=== PATIENT | female | born 1965 | race Native Hawaiian/Other Pacific Islander ===

== ENCOUNTER 2018-01-09 14:54 | Inpatient (IN) ==
--- NOTE | 2018-01-09 15:43 | ED ---
HPI General Chief Complaint: Psychiatric Symptoms Stated Complaint: Psych Eval Time Seen by Provider: 01/09/18 15:09 Source: patient Mode of arrival: other (TEJAL) Limitations: no limitations History of Present Illness HPI Narrative: 53-year-old female with a history of depression presents to emergency department for evaluation as a Pearson act. Patient was reported to call the police as patient has been feeling depressed and wanting to harm herself. Patient states she has been taking Paxil as prescribed however, still feels depressed and is worsening. Says she has had decreased sleep because of racing thoughts. She says that her temperature has been increasing and she is walking in the house all night because she is unable to sleep. She also has a history of hypertension but has been taking her medication. She denies fever, chills, chest pain or shortness of breath. She has no other complaints other than feeling depressed. Denies illicit drug use or alcohol use. complaint: suicidal ideation and feels depressed Onset (ago): day(s) Duration: constant and getting worse History of same: Yes Relieving factors: none Exacerbating factors: none Associated psychiatric symptoms: depression, suicidal ideation and racing thoughts Associated symptoms: denies other symptoms Treatments prior to arrival: none If self harm: admits thoughts of self harm Related Data Home Medications Medication Instructions Recorded Confirmed paroxetine HCl [Paxil] 40 mg PO DAILY 11/01/17 01/09/18 lisinopril 10 mg PO DAILY 01/09/18 01/09/18 Allergies Allergy/AdvReac Type Severity Reaction Status Date / Time acetaminophen Allergy Severe Swelling Verified 12/14/16 10:31 hydrocodone Allergy Severe Verified 12/14/16 10:31 ibuprofen Allergy Severe Swelling Verified 12/14/16 10:31 naproxen Allergy Severe Swelling Verified 12/14/16 10:31 oxycodone Allergy Severe Swelling Verified 12/14/16 10:31 aspirin Allergy Mild ITCH/SWELLI Verified 12/14/16 10:31 NG Review of Systems ROS: all other systems reviewed are negative PMFSH Medical History Medical History Depression (Acute) Surgical History Surgical History Hx of appendectomy (Acute) Social History Social History Substance History: No History of Abuse Second Hand Smoke Exposure: No Smoking Status: Never smoker How Often Do You Have a Drink Containing Alcohol: Monthly or less Recent Travel in [place] within the Last 8 Weeks: No Recent Out of Country Travel within the Last 8 Weeks: No Immunization History Tetanus Immunization: Unsure Hx Influenza Vaccine This Season: No Exam Narrative Exam Narrative: GENERAL: Well-developed, well-nourished appears sad, disheveled SKIN: Focused skin assessment warm/dry. HEAD: Atraumatic. Normocephalic. EYES: Pupils equal and round. No scleral icterus. No injection or drainage. ENT: No nasal bleeding or discharge. Mucous membranes pink and moist. NECK: Trachea midline. No JVD. MUSCULOSKELETAL: No obvious deformities. No clubbing. No cyanosis. No edema. NEUROLOGICAL: Awake and alert. No obvious cranial nerve deficits. Motor grossly within normal limits. Normal speech. PSYCHIATRIC: Depressed mood and affect; insight and judgment normal. Course Initial Documented Vital Signs Temperature 99.2 F 01/09/18 15:02 Pulse Rate 72 01/09/18 15:02 Respiratory Rate 16 01/09/18 15:02 Blood Pressure 154/80 H 01/09/18 15:02 Pulse Oximetry 99 01/09/18 15:02 Last Documented Vital Signs Temperature 98.4 F 01/10/18 06:00 Pulse Rate 66 01/10/18 06:00 Respiratory Rate 18 01/10/18 06:00 Blood Pressure 100/57 L 01/10/18 06:00 Pulse Oximetry 93 L 01/10/18 06:00 Medical Decision Making MDM Narrative Medical decision making narrative: 53y female presents to the ED as a Pearson Act with depression and suicidal ideations. Vitals are stable. Labs stable. She is medically cleared to see psych. Medical Screen Exam Complete: Yes Emergency Medical Condition: Yes Differential Diagnosis Differential Diagnosis: Suicidal ideations, depression, mood disorder, adjustment disorder Lab Data Result diagrams: 01/09/18 15:30 01/10/18 06:04 Lab Results 01/09/18 01/09/18 01/09/18 Range/Units 15:30 15:30 16:00 WBC 8.4 (4.0-11.0) th/mm3 RBC 4.10 (4.00-5.30) mil/mm3 Hgb 12.7 (11.6-15.3) gm/dL Hct 37.9 (35.0-46.0) % MCV 92.4 (80.0-100.0) fL MCH 31.0 (27.0-34.0) pg MCHC 33.6 (32.0-36.0) % RDW 14.1 (11.6-17.2) % Plt Count 297 (150-450) th/mm3 MPV 8.4 (7.0-11.0) fL Neut % (Auto) 58.1 (16.0-70.0) % Lymph % (Auto) 34.1 (9.0-44.0) % [place] % (Auto) 6.0 (0.0-8.0) % Eos % (Auto) 1.4 (0.0-4.0) % Baso % (Auto) 0.4 (0.0-2.0) % Neut # (Auto) 4.9 (1.8-7.7) th/mm3 Lymph # (Auto) 2.9 (1.0-4.8) th/mm3 [place] # (Auto) 0.5 (0.0-0.9) th/mm3 Eos # (Auto) 0.1 (0.0-0.4) th/mm3 Baso # (Auto) 0.0 (0.0-0.2) th/mm3 WBC Differential . Differential Comment Auto diff final Hemoglobin A Hemoglobin A2 Hemoglobin F () Hgb A2/F Interpret Hemoglobin Variant 2 Hemoglobin Variant 3 Hemoglobin Variant % Sodium 140 (136-145) meq/L Potassium 3.7 (3.5-5.1) meq/L Chloride 106 (98-107) meq/L Carbon Dioxide 27.3 (21.0-32.0) meq/L Anion Gap 7 (5-15) meq/L BUN 14 (7-18) mg/dL Creatinine 0.91 (0.50-1.00) mg/dL Estimated GFR 64 L (>89) mL/min Random Glucose 175 H (74-106) mg/dL Hemoglobin A1c (4.3-6.0) % Calcium 8.4 L (8.5-10.1) mg/dL Total Bilirubin 0.3 (0.2-1.0) mg/dL AST 28 (15-37) U/L ALT 47 (10-53) U/L Alkaline Phosphatase 80 (45-117) U/L Total Protein 7.9 (6.4-8.2) g/dL Albumin 3.6 (3.4-5.0) g/dL Triglycerides (42-150) mg/dL Cholesterol (120-200) mg/dL LDL Cholesterol, Calc (0-99) mg/dL HDL Cholesterol (40.0-60.0) mg/dL Cholesterol/HDL Ratio Ratio TSH 3.010 (0.358-3.740) uIU/mL Urine Opiates Screen Neg (Neg) Ur Barbiturates Screen Neg (Neg) Ur Amphetamines Screen Neg (Neg) U Benzodiazepines Scrn Neg (Neg) Urine Cocaine Screen Neg (Neg) U Cannabinoids Screen Neg (Neg) Serum Alcohol Less than 3 (0-5) mg/dL 01/10/18 01/10/18 01/10/18 Range/Units 06:01 06:01 06:04 WBC (4.0-11.0) th/mm3 RBC (4.00-5.30) mil/mm3 Hgb (11.6-15.3) gm/dL Hct (35.0-46.0) % MCV (80.0-100.0) fL MCH (27.0-34.0) pg MCHC (32.0-36.0) % RDW (11.6-17.2) % Plt Count (150-450) th/mm3 MPV (7.0-11.0) fL Neut % (Auto) (16.0-70.0) % Lymph % (Auto) (9.0-44.0) % [place] % (Auto) (0.0-8.0) % Eos % (Auto) (0.0-4.0) % Baso % (Auto) (0.0-2.0) % Neut # (Auto) (1.8-7.7) th/mm3 Lymph # (Auto) (1.0-4.8) th/mm3 [place] # (Auto) (0.0-0.9) th/mm3 Eos # (Auto) (0.0-0.4) th/mm3 Baso # (Auto) (0.0-0.2) th/mm3 WBC Differential Differential Comment Hemoglobin A Cancelled Hemoglobin A2 Cancelled Hemoglobin F () Cancelled Hgb A2/F Interpret Cancelled Hemoglobin Variant 2 Cancelled Hemoglobin Variant 3 Cancelled Hemoglobin Variant % Cancelled Sodium 142 (136-145) meq/L Potassium 3.5 (3.5-5.1) meq/L Chloride 107 (98-107) meq/L Carbon Dioxide 25.9 (21.0-32.0) meq/L Anion Gap 9 (5-15) meq/L BUN 13 (7-18) mg/dL Creatinine 0.85 (0.50-1.00) mg/dL Estimated GFR 69 L (>89) mL/min Random Glucose 91 (74-106) mg/dL Hemoglobin A1c 6.3 H (4.3-6.0) % Calcium 8.5 (8.5-10.1) mg/dL Total Bilirubin (0.2-1.0) mg/dL AST (15-37) U/L ALT (10-53) U/L Alkaline Phosphatase (45-117) U/L Total Protein (6.4-8.2) g/dL Albumin (3.4-5.0) g/dL Triglycerides 251 H (42-150) mg/dL Cholesterol 195 (120-200) mg/dL LDL Cholesterol, Calc 109 H (0-99) mg/dL HDL Cholesterol 35.5 L (40.0-60.0) mg/dL Cholesterol/HDL Ratio 5.49 Ratio TSH (0.358-3.740) uIU/mL Urine Opiates Screen (Neg) Ur Barbiturates Screen (Neg) Ur Amphetamines Screen (Neg) U Benzodiazepines Scrn (Neg) Urine Cocaine Screen (Neg) U Cannabinoids Screen (Neg) Serum Alcohol (0-5) mg/dL Discharge Plan Discharge Disposition Patient Disposition: 30 Still Patient Discharge Condition Condition: Stable Discharge Details Diagnosis: Suicidal ideations, Depressed mood Physicians Team ED Provider: Sly Navarro ED Midlevel Provider: Sharonda Guerrero Primary Care Provider: Primary Care Corina Villarreal Attending Provider: Elio Bertrand Other Providers: SG Garay High Service Status ED Status: Left Department Discharge Information Discharge Date/Time: 01/10/18 00:17
[2018-01-09 16:31] LABS: Baso % (Auto) 0.4 % (0.0-2.0); Eos # (Auto) 0.1 th/mm3 (0.0-0.4); Eos % (Auto) 1.4 % (0.0-4.0); Hematocrit 37.9 % (35.0-46.0); Hemoglobin 12.7 gm/dL (11.6-15.3); Lymph # (Auto) 2.9 th/mm3 (1.0-4.8); Lymph % (Auto) 34.1 % (9.0-44.0); Mean Corpuscular HGB Conc 33.6 % (32.0-36.0); Mean Corpuscular Volume 92.4 fL (80.0-100.0); Mean Platelet Volume 8.4 fL (7.0-11.0); Mono # (Auto) 0.5 th/mm3 (0.0-0.9); Neut # (Auto) 4.9 th/mm3 (1.8-7.7); Neut % (Auto) 58.1 % (16.0-70.0); Platelet Count 297 th/mm3 (150-450); Red Cell Distribution Width 14.1 % (11.6-17.2); White Blood Count 8.4 th/mm3 (4.0-11.0)
[2018-01-09 16:40] LABS: Amphetamine Screen,Urine Neg (Neg); Barbiturate Screen,Urine Neg (Neg); Cannabinoid Screen,Urine Neg (Neg); Cocaine Screen,Urine Neg (Neg)
[2018-01-09 16:51] LABS: Alanine Aminotransferase 47 U/L (10-53); Albumin 3.6 g/dL (3.4-5.0); Anion Gap 7 meq/L (5-15); Aspartate Aminotransferase 28 U/L (15-37); Blood Urea Nitrogen 14 mg/dL (7-18); Calcium 8.4 mg/dL (8.5-10.1); Carbon Dioxide 27.3 meq/L (21.0-32.0); Chloride 106 meq/L (98-107); Glomerular Filtration Rate 64 mL/min (>89); Glucose,Random 175 mg/dL (74-106); Potassium 3.7 meq/L (3.5-5.1); Sodium 140 meq/L (136-145)
[2018-01-09 16:58] LABS: Opiate Screen,Urine Neg (Neg)
[2018-01-09 17:01] LABS: Alkaline Phosphatase 80 U/L (45-117); Total Protein 7.9 g/dL (6.4-8.2)
[2018-01-09] MEDS ORDERED: Aluminum/Magnesium/Simethacone Susp 30 ML UDC PO PRN (21:34)
[2018-01-10 07:46] LABS: Calcium 8.5 mg/dL (8.5-10.1); Carbon Dioxide 25.9 meq/L (21.0-32.0); Potassium 3.5 meq/L (3.5-5.1)
[2018-01-10 07:50] LABS: Chol/HDL Ratio 5.49 Ratio; HDL Cholesterol 35.5 mg/dL (40.0-60.0)
[2018-01-10 12:14] LABS: Hemoglobin A1c 6.3 % (4.3-6.0)
--- NOTE | 2018-01-10 12:53 | P.HPPSY ---
Provisional Diagnosis Admission Date: January 09, 2018 20:55 [place] I.: 1. Major depressive disorder, recurrent, severe with psychotic features [place] II.: Deferred Competence Certification of Person's Competence To Provide Express and Informed Consent I have personally examined Lolis Aguilar, a person being served at [facility] on, January 10, 2018 1253. Express and informed consent means consent voluntarily given in writing, by a competent person, after sufficient explanation and disclosure of the subject matter involved to enable the person to make a knowing and willful decision without any element of force, fraud, deceit, duress, or other form of constraint or coercion. This person is 18 years of age or older, is not now known to be incompetent to consent to treatment with a guardian advocate, and does not have a health care surrogate or proxy currently making medical treatment decisions. I have found this person to be one of the following: [X] Competent to provide express and informed consent, as defined above, for voluntary admission to this facility and is competent to provide express and informed consent for treatment. He/she has the consistent capacity to make well reasoned, willful, and knowing decisions concerning his or her medical or mental health treatment. The person fully and consistently understands the purpose of the admission for examination/placement and is fully capable of personally exercising all rights assured [place] [] Incompetent to provide express and informed consent to voluntary admission, and this is incompetent to provide express and informed consent to treatment. The person must be transferred to involuntary status and a petition for a guardian advocate filed with the Circuit Court. [] Refusing to provide express and informed consent to voluntary admission but is competent to provide express and informed consent for treatment. The person must be discharged or transferred to involuntary status. Form shall be completed within 24 hours of a person's arrival at the receiving facility and filed in the clinical record of each person: 1. Admitted on a voluntary basis 2. Permitted to provide express and informed consent to his/her own treatment 3. Allowed to transfer from involuntary to voluntary status 4. Prior to permitting a person to consent to his or her own treatment after having been previously found incompetent to consent to treatment. History of Present Illness Capacity: Has capacity Chief Complaint: Depression History of Present Illness: Ms. Aguilar is a 53-year-old female with a reported history of depression who was brought to the emergency department under a Pearson act by law enforcement. She told the ED provider that she was taking Paxil but that was not helping with her depression. Reviewing the electronic medical record, I see no previous psychiatric contact within our system. Patient seen and examined with nurse. Chart reviewed. Case discussed with nursing staff. On my examination today, the patient says that she has been feeling depressed "always" but that more recently she has begun experiencing deprecatory auditory hallucinations occurring most of the time and occasional command auditory hallucinations to self injure. She also has been experiencing visual hallucinations of figures beside her. She reports that her sleep has been quite poor. She says that she was experiencing suicidal ideation yesterday but denies any suicidal ideation today. No homicidal ideation. No hypomanic or manic symptoms. Remainder of the psychiatric ROS is negative. No acute physical complaints. Past psychiatric history: The patient reports a history of depression. She is not under the care of a psychiatrist. She takes Paxil prescribed to her by her primary care doctor, but as noted in the ED provider notes she does not believe that this medication alone is adequate for her psychiatric issues and in particular her sleep. She notes that she was psychiatrically admitted 2 years ago in [facility]. She denies a history of suicide attempts. Family history: The patient denies a family history of mental illness. Chemical dependency history: The patient denies any abuse of drugs or alcohol. Social history: Patient lives with her and son. She is high school educated. She does not work. She denies any or legal history. Denies any access to guns or firearms. She is a Druze. She denies any history of trauma. Past medical history: Includes a history of hypertension. - Inpatient Certification I certify that the inpatient services were ordered in accordance with Medicare regulations governing the order. This includes certification that hospital inpatient services are reasonable and necessary and in the case of services not specified as inpatient-only under 42 CFR 419.22(n), that they are appropriately provided as inpatient services in accordance to with the 2-midnight benchmark under 43 CFR 412.3(e) I certify that inpatient psychiatric hospital services are medically necessary. Evaluation and treatment and/or diagnostic testing are expected to improve the patient's condition. The patient needs on a daily basis, active treatment furnished directly by or requiring the supervision of inpatient psychiatric facility personnel. Estimated Total Length of Stay (Days): 9 (7-9) Plans for Post Hospital Care: Not yet determined Review of Systems All other systems reviewed negative except as stated in HPI [facility] - History History Provided By: Patient - Medical History Medical History: Medical History (Last Reviewed 01/09/18 @ 15:42 by MICHELLE Newberry) Depression (Acute) - Surgical History Surgical History: Surgical History (Last Updated 01/09/18 @ 15:11 by Eliana Lehman RN) Hx of appendectomy (Acute) - Tobacco History Second Hand Smoke Exposure: No Smoking Status: Never smoker - Alcohol History How Often Do You Have a Drink Containing Alcohol: Monthly or less - Substance Use History Substance History: No History of Abuse - Travel History Recent Travel in the [place] Within the Last 8 Weeks: No Recent Travel Out of the Country Within the Last 8 Weeks: No - Immunization History Tetanus Immunization: Unsure Hx Influenza Vaccine This Season: No Quality Measures - Patient Strengths Patient's strengths (minimum of 2): In a monitored setting. Verbally fluent. Medications and Allergies Active Medications: Active Medications Al Hydrox/Mg Hydrox/Simethicone (Mag-Al Plus Susp Liq) 30 ml PO Q6H PRN PRN Reason: DYSPEPSIA Al Hydroxide/Mg Hydroxide (Milk Of Magnesia Liq) 30 ml PO DAILY PRN PRN Reason: CONSTIPATION Diphenhydramine HCl (Benadryl) 50 mg PO HS PRN PRN Reason: INSOMNIA Last Admin: 01/09/18 21:37 Dose: 50 mg Diphenhydramine HCl (Benadryl Inj) 50 mg IM HS PRN PRN Reason: INSOMNIA Hydroxyzine HCl (Atarax) 50 mg PO Q6H PRN PRN Reason: ANXIETY Nicotine (Habitrol 21 Mg Patch.24 Hr) 1 patch T-DERMAL DAILY [facility] Last Admin: 01/10/18 08:26 Dose: Not Given Patch Removal (Remove Old Patch) 1 each T-DERMAL HS [facility] Risperidone (Risperdal) 1 mg PO BID STEVAN Last Admin: 01/10/18 08:27 Dose: 1 mg Allergies Allergy/AdvReac Type Severity Reaction Status Date / Time acetaminophen Allergy Severe Swelling Verified 12/14/16 10:31 hydrocodone Allergy Severe Verified 12/14/16 10:31 ibuprofen Allergy Severe Swelling Verified 12/14/16 10:31 naproxen Allergy Severe Swelling Verified 12/14/16 10:31 oxycodone Allergy Severe Swelling Verified 12/14/16 10:31 aspirin Allergy Mild ITCH/SWELLI Verified 12/14/16 10:31 NG Home Medications Medication Instructions Recorded Confirmed Type paroxetine HCl [Paxil] 40 mg PO DAILY 11/01/17 01/09/18 History lisinopril 10 mg PO DAILY 01/09/18 01/09/18 History Results - Labs CBC & Chem 7: 01/09/18 15:30 01/10/18 06:04 Labs: Laboratory Results - last 24 hr 01/09/18 01/09/18 01/09/18 15:30 15:30 16:00 WBC 8.4 RBC 4.10 Hgb 12.7 Hct 37.9 MCV 92.4 MCH 31.0 MCHC 33.6 RDW 14.1 Plt Count 297 MPV 8.4 Neut % (Auto) 58.1 Lymph % (Auto) 34.1 [place] % (Auto) 6.0 Eos % (Auto) 1.4 Baso % (Auto) 0.4 Neut # (Auto) 4.9 Lymph # (Auto) 2.9 [place] # (Auto) 0.5 Eos # (Auto) 0.1 Baso # (Auto) 0.0 WBC Differential . Differential Comment Auto diff final Hemoglobin A Hemoglobin A2 Hemoglobin F () Hgb A2/F Interpret Hemoglobin Variant 2 Hemoglobin Variant 3 Hemoglobin Variant % Sodium 140 Potassium 3.7 Chloride 106 Carbon Dioxide 27.3 Anion Gap 7 BUN 14 Creatinine 0.91 Estimated GFR 64 L Random Glucose 175 H Hemoglobin A1c Calcium 8.4 L Total Bilirubin 0.3 AST 28 ALT 47 Alkaline Phosphatase 80 Total Protein 7.9 Albumin 3.6 Triglycerides Cholesterol LDL Cholesterol, Calc HDL Cholesterol Cholesterol/HDL Ratio TSH 3.010 Urine Opiates Screen Neg Ur Barbiturates Screen Neg Ur Amphetamines Screen Neg U Benzodiazepines Scrn Neg Urine Cocaine Screen Neg U Cannabinoids Screen Neg Serum Alcohol Less than 3 01/10/18 01/10/18 01/10/18 06:01 06:01 06:04 WBC RBC Hgb Hct MCV MCH MCHC RDW Plt Count MPV Neut % (Auto) Lymph % (Auto) [place] % (Auto) Eos % (Auto) Baso % (Auto) Neut # (Auto) Lymph # (Auto) [place] # (Auto) Eos # (Auto) Baso # (Auto) WBC Differential Differential Comment Hemoglobin A Cancelled Hemoglobin A2 Cancelled Hemoglobin F () Cancelled Hgb A2/F Interpret Cancelled Hemoglobin Variant 2 Cancelled Hemoglobin Variant 3 Cancelled Hemoglobin Variant % Cancelled Sodium 142 Potassium 3.5 Chloride 107 Carbon Dioxide 25.9 Anion Gap 9 BUN 13 Creatinine 0.85 Estimated GFR 69 L Random Glucose 91 Hemoglobin A1c 6.3 H Calcium 8.5 Total Bilirubin AST ALT Alkaline Phosphatase Total Protein Albumin Triglycerides 251 H Cholesterol 195 LDL Cholesterol, Calc 109 H HDL Cholesterol 35.5 L Cholesterol/HDL Ratio 5.49 TSH Urine Opiates Screen Ur Barbiturates Screen Ur Amphetamines Screen U Benzodiazepines Scrn Urine Cocaine Screen U Cannabinoids Screen Serum Alcohol Labs reviewed. Mildly elevated hemoglobin A1c. I will switch to carbohydrate controlled diet. Exam Vital signs: Vital Signs 01/09/18 15:02 01/09/18 22:00 01/10/18 06:00 Temperature 99.2 F 98.2 F 98.4 F Pulse Rate 72 65 66 Respiratory Rate 16 18 Blood Pressure 154/80 H 173/84 H 100/57 L Pulse Oximetry 99 96 93 L Intake & Output 01/09/18 01/10/18 01/10/18 18:59 06:59 18:59 Intake Total 360 / 360 Balance 360 / 360 Weight 165 kg 74.3 kg Intake: Oral 360 / 360 Narrative: Physical examination completed by the ED provider. On my examination today, the patient appears to be in no acute physical distress. No motor abnormalities noted. No signs of catatonia noted. Labs and vital signs reviewed. Mental Status Examination Appearance: Appropriate Consciousness: Alert Orientation: Person, Place (At least) Motor Activity: Other (No motor abnormalities noted) Speech: Slow Language: Adequate Fund of Knowledge: Adequate Attention and Concentration: Adequate Memory: Unremarkable (Grossly intact on clinical exam) Mood: Other (Depressed) Affect: Other (Restricted) Thought Process & Associations: Other (Somewhat slowed) Thought Content: Hallucinations Hallucination Type: Auditory, Visual, Command Delusion Type: None Suicidal Ideation: No Suicidal Plan: No Suicidal Intention: No Homicidal Ideation: No Homicidal Plan: No Homicidal Intention: No Insight: Fair Judgment: Impulsive Assessment and Plan - Assessment (1) Major depressive disorder, recurrent, severe with psychotic features Code(s): F33.3 - Major depressive disorder, recurrent, severe with psychotic symptoms Status: Acute - Plan Plan: 53-year-old female with psychiatric history as detailed above who presents under a Pearson act. On my examination today, the patient endorses depressive symptomatology as well as more recent onset of hallucinations. I am concerned that she may be experiencing a psychotic depression. No laboratory abnormalities to indicate obvious medical cause for new onset of hallucinations. Patient requires psychiatric hospitalization for safety, observation and stabilization. Admit inpatient. Voluntary status. Continue Paxil 40 mg daily for management of depression. To consider augmenting with a second antidepressant versus switching to a different primary antidepressant. For management of psychosis I will add Seroquel 50 mg at bedtime with plans to titrate to effect. Atarax as needed for anxiety. Melatonin as needed for sleep. R/B/A for medications discussed with patient. Check EKG for QTC. Vitals every shift. Counselor to see. Disposition planning. Estimated length of stay: 7-9 days. Justification for Continued Inpatient Stay: See above Discharge Planning: Pending psychiatric stabilization Request Healthcare Surrogate/Guardian Advocate?: No
[2018-01-10] MEDS: QUEtiapine 25 MG Tablet PO SCH (20:51)
[2018-01-10] MEDS ORDERED: Melatonin 5 MG Tablet PO PRN (21:00)
[2018-01-11 06:51] LABS: Calcium 8.7 mg/dL (8.5-10.1); Carbon Dioxide 27.9 meq/L (21.0-32.0); Potassium 3.8 meq/L (3.5-5.1)
[2018-01-11 06:54] LABS: Chol/HDL Ratio 5.29 Ratio; HDL Cholesterol 37.4 mg/dL (40.0-60.0)
[2018-01-11] MEDS: Lisinopril 10 MG Tablet PO SCH (08:50)
--- NOTE | 2018-01-11 13:54 | P.PNPSY ---
Subjective Chief Complaint: Depression Remarks: Patient seen and examined with nurse. Chart reviewed. Patient did not receive Seroquel last night secondary to being fairly sedated. Case discussed with nursing staff who reports that the patient has been much more alert today and presented no behavioral problem. Case discussed with counselor who will call family members for collateral. On my examination today, the patient is awake and alert. She is calm and cooperative with examination. She says that she is feeling better today. She continues to endorse deprecatory auditory hallucinations but denies command auditory hallucinations to hurt herself or others. She also endorses occasional visual phenomena. She says that she has been quite stressed out lately because of being out of work. I did discuss with the patient the possibility of starting a different antipsychotic that is less sedating, but the patient would like to give the Seroquel a try tonight. No side effects from medications. No physical complaints. Vital Signs Temp Pulse Resp BP Pulse Ox 01/11/18 07:16 97.6 F 63 16 115/67 94 L 01/11/18 05:50 97.6 F 63 16 115/67 94 L 01/10/18 20:00 97.8 F 97 H 16 132/62 97 Intake and Output 01/11/18 01/11/18 01/11/18 06:59 14:59 22:59 Other: Weight 74.8 kg Laboratory Results - last 24 hr 01/11/18 05:51 Sodium 142 Potassium 3.8 Chloride 107 Carbon Dioxide 27.9 Anion Gap 7 BUN 19 H Creatinine 0.85 Estimated GFR 69 L Random Glucose 93 Calcium 8.7 Triglycerides 180 H Cholesterol 198 LDL Cholesterol, Calc 125 H HDL Cholesterol 37.4 L Cholesterol/HDL Ratio 5.29 Labs reviewed. EKG reviewed. QTc within normal limits. Review of Systems All other systems reviewed negative except as stated in HPI Mental Status Examination Appearance: Appropriate Consciousness: Alert Orientation: Person, Place (At least) Motor Activity: Other (No motoric abnormalities noted) Speech: Unremarkable Language: Adequate Fund of Knowledge: Adequate Attention and Concentration: Adequate Memory: Unremarkable (Grossly intact on clinical exam) Mood: Other (Depressed) Affect: Other (Brighter and more reactive today) Thought Process & Associations: Intact Thought Content: Hallucinations Hallucination Type: Auditory (Noncommand, deprecatory), Visual Delusion Type: None Suicidal Ideation: No Homicidal Ideation: No Insight: Fair Judgment: Impulsive Assessment and Plan - Assessment (1) Major depressive disorder, recurrent, severe with psychotic features Code(s): F33.3 - Major depressive disorder, recurrent, severe with psychotic symptoms Status: Acute - Plan Plan: First dose of Seroquel this evening. Continue Paxil as ordered. Continue to monitor on the inpatient unit. Continue other medications and care as ordered. Justification for Continued Inpatient Stay: Risk for decompensation in less restrictive environment. Impairment in reality construction. Discharge Planning: Pending psychiatric stabilization. Request Healthcare Surrogate/Guardian Advocate?: No
--- NOTE | 2018-01-11 19:58 | ECG ---
Date Performed: 01/10/2018 Time Performed: 13:29:13 PTAGE: 53 years EKG: Sinus rhythm INCOMPLETE RIGHT BUNDLE BRANCH BLOCK LEFT ANTERIOR FASCICULAR BLOCK NONSPECIFIC T-WAVE ABNORMALITY S [place] the previous tracing, no significant change noted ABNORMAL ECG PREVIOUS TRACING : 01/06/2015 15.26 DOCTOR: Cl Higginbotham Interpretating Date/Time 01/11/2018 19:58:06
[2018-01-11] MEDS: QUEtiapine 25 MG Tablet PO SCH (20:30)
[2018-01-12 04:55] VITALS: BP 119/66; PULSE 68; RESP 16; TEMP 97.9; O2SAT 94
[2018-01-12] MEDS: Lisinopril 10 MG Tablet PO SCH (09:05)
--- NOTE | 2018-01-12 12:40 | P.DSPSY ---
Psychiatry Discharge Summary Inpatient Psychiatric care?: Yes Advance Directives: No Mental Health Advance Directive: No Health Care Proxy: No - Admission Admission Date: January 09, 2018 20:55 - Admission Diagnosis (1) Major depressive disorder, recurrent, severe with psychotic features Code(s): F33.3 - Major depressive disorder, recurrent, severe with psychotic symptoms Brief History: Ms. Aguilar is a 53-year-old female with a reported history of depression who was brought to the emergency department under a Pearson act by law enforcement. She told the ED provider that she was taking Paxil but that was not helping with her depression. Reviewing the electronic medical record, I see no previous psychiatric contact within our system. Patient seen and examined with nurse. Chart reviewed. Case discussed with nursing staff. On my examination today, the patient says that she has been feeling depressed "always" but that more recently she has begun experiencing deprecatory auditory hallucinations occurring most of the time and occasional command auditory hallucinations to self injure. She also has been experiencing visual hallucinations of figures beside her. She reports that her sleep has been quite poor. She says that she was experiencing suicidal ideation yesterday but denies any suicidal ideation today. No homicidal ideation. No hypomanic or manic symptoms. Remainder of the psychiatric ROS is negative. No acute physical complaints. Past psychiatric history: The patient reports a history of depression. She is not under the care of a psychiatrist. She takes Paxil prescribed to her by her primary care doctor, but as noted in the ED provider notes she does not believe that this medication alone is adequate for her psychiatric issues and in particular her sleep. She notes that she was psychiatrically admitted 2 years ago in [facility]. She denies a history of suicide attempts. Family history: The patient denies a family history of mental illness. Chemical dependency history: The patient denies any abuse of drugs or alcohol. Social history: Patient lives with her and son. She is high school educated. She does not work. She denies any or legal history. Denies any access to guns or firearms. She is a Sabianism. She denies any history of trauma. Past medical history: Includes a history of hypertension. Tobacco Use In Past 30 Days: No How Often Do You Have a Drink Containing Alcohol: Monthly or less Hospital Course: Patient was admitted to a locked, inpatient psychiatric unit. Appropriate precautions were in place throughout patient's hospital stay. Patient was seen and examined on the unit by psychiatry and also visited by counselor. Psychotropic medications were adjusted. There was no evidence of any suicidality or homicidality on the inpatient unit. Collateral information was obtained from the patient's . On the day of discharge: Patient seen and examined with nurse. Chart reviewed. Case discussed with nursing staff. No behavioral issues noted overnight. Case discussed in treatment team. Counselor relates that she has reached out to the patient's who is supportive of discharge home today. Occupational therapist notes that the patient still seems somewhat depressed. On my examination today, the patient is requesting discharge from the inpatient psychiatric unit today. She denies any suicidal or homicidal ideation, intent or plan. She reports that her mood is "healthy good" and I can elicit no severe depressive or hypomanic/manic symptoms. She insists that she has not had any audiovisual hallucinations in 2 days and has none now. I can elicit no delusional material. She denies any side effects from medications. She was able to tolerate her Seroquel last night. No physical complaints. Weighing the relevant factors and based on the available evidence, I weigher and grader that the patient does not meet criteria for involuntary psychiatric hospitalization at this time. There is no evidence of imminent risk of harm to self or others, nor is there evidence of self-care deficit to substantiate involuntary psychiatric hospitalization. I have strongly recommended that the patient remain on the inpatient unit for further stabilization but she has declined. Having no basis to retain the patient over her objection, I will discharge her AGAINST MEDICAL ADVICE. I have explained to the patient that she is leaving AGAINST MEDICAL ADVICE. Psychiatric follow- up as arranged by counselor. Patient is also to follow up with primary care. I have counseled the patient regarding warning signs for need to return to the psychiatric emergency room as part of a general safety plan. - Discharge Discharge Date: 01/12/18 - Discharge Diagnosis (1) Major depressive disorder, recurrent, in partial remission Diagnosis: Principal Code(s): F33.41 - Major depressive disorder, recurrent, in partial remission Status: Acute Discharge Disposition: Home - Discharge Instructions Discharge Diet: Diabetic Diet Activities You Can Perform: Weight Bearing As Tolerat - Discharge Time <= 30 minutes Mental Status Examination Appearance: Appropriate Consciousness: Alert Orientation: x4 Motor Activity: Normal gait, Other (No hand tremor, no dystonia, no dyskinesia, no other motor abnormalities noted.) Speech: Unremarkable Language: Adequate Fund of Knowledge: Adequate Attention and Concentration: Adequate Memory: Unremarkable (Grossly intact on clinical exam) Mood: Other ("Healthy good") Affect: Appropriate Thought Process & Associations: Intact, Logical, Linear Thought Content: Appropriate Hallucination Type: None Delusion Type: None Suicidal Ideation: No Suicidal Plan: No Suicidal Intention: No Homicidal Ideation: No Homicidal Plan: No Homicidal Intention: No Mental Status Exam Remarks: Insight and judgment are perhaps fair Discharge/Advance Care Plan - Results Vital Signs: Last Vital Signs Temp 97.9 F 01/12/18 04:54 Pulse 68 01/12/18 04:54 Resp 16 01/12/18 04:54 BP 119/66 01/12/18 04:54 Pulse Ox 94 L 01/12/18 04:54 Lab Results: Laboratory Results Hemoglobin A1c 6.3 % (4.3-6.0) H 01/10/18 06:01 Triglycerides 180 mg/dL (42-150) H 01/11/18 05:51 Cholesterol 198 mg/dL (120-200) 01/11/18 05:51 LDL Cholesterol, Calc 125 mg/dL (0-99) H 01/11/18 05:51 HDL Cholesterol 37.4 mg/dL (40.0-60.0) L 01/11/18 05:51 TSH 3.010 uIU/mL (0.358-3.740) 01/09/18 15:30 Summary of Procedures: None done Pending Results: None - Medications Number of antipsychotic medications at discharge: 1 - Discharge Care Plan Goals to Promote Your Health: * To prevent worsening of your condition and complications * To maintain your health at the optimal level Directions to Meet Your Goals: Take your medications as prescribed Follow your dietary instruction Follow activity as directed Keep your appointments as scheduled Take your immunizations and boosters as scheduled If your symptoms worsen call your PCP, if no PCP go to Urgent Care Center or Emergency Room For 14/11 questions related to your inpatient stay or results of tests pending at discharge, please contact Dr. Elio Bertrand MD at [phone] Smoking is Dangerous to Your Health. Avoid second hand smoking
== END 2018-01-12 13:00 | disposition left against medical advice (07) ==
LOC: NEPJ 14:54 → NEDA 20:55 → H260 22:04
PROVIDERS: ADMIT Psychiatry & Neurology Psychiatry; ATTEND Psychiatry & Neurology Psychiatry